=== PATIENT | male | born 1980 | race Caucasian/White ===

== ENCOUNTER 2021-12-02 16:23 | Inpatient (IN) | payer OTHER ==
[~2021-12-02] VITALS: Ht 185.4 cm; Wt 97.3 kg
[2021-12-02] MEDS ORDERED: pantoprazole 40MG/NS 100ML BAG 100 ML IV STA ×2 (16:55→17:12)
[2021-12-02] MEDS ORDERED: folic acid 1mg/0.2ml inj IV ONE (16:55)
[2021-12-02] MEDS ORDERED: thiamine 100mg/ml 2ml inj. IV ONE (16:55)
[2021-12-02] MEDS ORDERED: normal saline 1000ML IV soln IV ONE (16:55)
[2021-12-02 17:28] LABS: BASOPHILS % (AUTO) 0.5 % (0-1); EOSINOPHILS # (AUTO) 0.1 X10'3 (0-0.9); EOSINOPHILS % (AUTO) 0.6 % (0-6); HEMATOCRIT 43.7 % (42.0-52.0); HEMOGLOBIN 15.4 g/dl (14.0-17.9); LYMPHOCYTES # (AUTO) 2.2 X10'3 (1.1-4.8); LYMPHOCYTES % (AUTO) 23.7 % (21-51); MEAN CORPUSCULAR HEMOGLOBIN 32.5 PG (27.0-31.0); MEAN CORPUSCULAR HGB CONC 35.2 g/dL (33.0-36.5); MEAN CORPUSCULAR VOLUME 92.3 FL (78-98); MEAN PLATELET VOLUME 7.9 FL (7.4-10.4); MONOCYTES # (AUTO) 0.5 X10'3 (0-0.9); MONOCYTES % (AUTO) 5.2 % (2-12); NEUTROPHILS # (AUTO) 6.4 X10'3 (1.8-7.7); PLATELET COUNT 254 X10'3 (140-440); RED BLOOD COUNT 4.74 X10'6 (4.70-6.10); RED CELL DISTRIBUTION WIDTH 12.7 % (11.5-14.5); WHITE BLOOD COUNT 9.1 X10'3 (4.5-11.0)
[2021-12-02 17:46] LABS: ALANINE AMINOTRANSFERASE 56 U/L (12-78); ALBUMIN 4.2 G/DL (3.4-5.0); ALBUMIN/GLOBULIN RATIO 1.3 (1.1-1.5); ALKALINE PHOSPHATASE 75 IU/L (46-116); ANION GAP 13 (8-16); ASPARTATE AMINO TRANSFERASE 26 U/L (10-37); BLOOD UREA NITROGEN 18 MG/DL (7-18); BUN/CREATININE RATIO 19.8 (5.4-32.0); CALCIUM 8.6 MG/DL (8.5-10.1); CHLORIDE 105 MMOL/L (99-107); CREATININE 0.91 MG/DL (0.60-1.10); GLUCOSE 95 MG/DL (70-104); POTASSIUM 3.6 MMOL/L (3.5-5.1); SODIUM 139 MMOL/L (135-145); TOTAL CARBON DIOXIDE 20.8 MMOL/L (24-32); TOTAL PROTEIN 7.5 G/DL (6.4-8.2); eGFR > 90 ML/MIN
[2021-12-02 17:52] LABS: ETHANOL < 0.010 GM/DL (0.0-0.010)
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
[2021-12-02] MEDS ORDERED: LIDOcaine Viscous 15ml cup MM ONE (19:20)
[2021-12-02] MEDS ORDERED: sucralfate 1 gm tablet PO ONE (19:20)
[2021-12-02] MEDS ORDERED: mag hydrox/Alum hydrox/simeth 30ml oral suspension PO ONE (19:20)
[2021-12-02] MEDS ORDERED: folic acid 1mg tablet PO ONE (19:25)
[2021-12-02] MEDS ORDERED: thiamine 100mg tablet PO ONE (19:25)
--- NOTE | 2021-12-02 20:21 | NUR ---
report given to RN patient transferring to [facility]
--- NOTE | 2021-12-02 20:33 | NUR ---
Pt arrived in EDOF he is tearful states he is suicidal because his and children are leaving him "after 22 years." Pt provided urine sample and changed into green scrubs.
[2021-12-02 21:26] LABS: URINE AMPHETAMINE SCREEN NEGATIVE (Neg); URINE BARBITUATE SCREEN NEGATIVE (Neg); URINE BENZODIAZEPINES SCREEN NEGATIVE (Neg); URINE CANNABINOID SCREEN POSITIVE (Neg); URINE COCAINE SCREEN NEGATIVE (Neg); URINE METHADONE SCREEN NEGATIVE (Neg); URINE OPIATE SCREEN NEGATIVE (Neg); URINE PHENCYCLIDINE SCREEN NEGATIVE (Neg)
[2021-12-02] MEDS ORDERED: ATOR80TA PO (22:03)
[2021-12-02] MEDS ORDERED: DULO-31 PO (22:03)
[2021-12-02] MEDS ORDERED: MULT-1074 PO (22:03)
[2021-12-02] MEDS ORDERED: OMEG-79 PO (22:03)
[2021-12-02] MEDS ORDERED: ALBU8HFA PO (22:03)
[2021-12-02] MEDS ORDERED: MELO-102 PO (22:03)
[2021-12-02] MEDS ORDERED: CETI10TA15 PO (22:03)
[2021-12-02] MEDS ORDERED: PRAZ1CAP5 PO (22:03)
[2021-12-02] MEDS ORDERED: LIDO5CRE18 TOP (22:03)
[2021-12-02] MEDS ORDERED: FLUT16SP11 BOTHNARES (22:03)
[2021-12-02] MEDS ORDERED: albuterol 2.5 MG/3 ML nebule NEB PRN (23:55)
[2021-12-02] MEDS ORDERED: LIDOCAINE 5% OINTMENT 35GM TP PRN (23:55)
--- NOTE | 2021-12-03 01:35 | NUR ---
Pt is sleeping, appears to be resting comfortably rr even and unlabored.
--- NOTE | 2021-12-03 02:06 | NUR ---
Pt asleep on right side, even rise and fall of chest
--- NOTE | 2021-12-03 05:19 | NUR ---
Pt awaken for vitals and returns to sleep, rr even and unlabored.
--- NOTE | 2021-12-03 06:00 | NUR ---
ASSUMED CARE FROM OFF GOING NURSE YOLIS. PT. RESTING QUIETLY WITH EYES CLOSED. NO DISTRESS NOTED. WILL CONTINUE TO MONITOR FOR SAFETY.
[2021-12-03] MEDS: fluticasone nasal spray 16GM bottle NS SCH (08:00)
[2021-12-03] MEDS: MELOXICAM 15MG TABLET PO SCH (08:00)
--- NOTE | 2021-12-03 09:35 | NUR ---
PT. SITTING ON THE EDGE OF BED VOMITING. PT. STATES HE WAS SEEN BY THE [facility] PRIOR TO THIS ADMISSION FOR STOMACH ISSUES. PT. STATES THAT HIS STOMACH ISSUES WERE MADE WORST AFTER FINDING OUT HIS WAS LEAVING HIM AND TAKING THE CHILDREN. PT. PRESENTS TEARFUL AND DEPRESSED. ORDER OBTAINED FOR ZOFRAN 4MG IM FOR N/V. STAFF WILL CONTINUE TO MONITOR FOR SAFETY.
--- NOTE | 2021-12-03 09:37 | NUR ---
pt woke up and began vomiting and reports upset stomach. edmd susanna made aware and verbal order received for zofran 4mg IM x1 dose now. order placed as received
[2021-12-03] MEDS ORDERED: ondansetron/PF 4mg/2ml inj IM ONE (09:40)
--- NOTE | 2021-12-03 10:00 | NUR ---
received call from [facility] regarding possible future placement for pt. they state they will take him if he needs placement for mental health or are available for follow up appointments/resources if necessary if pt is discharged. informed Roman with [facility] regarding this information.
[2021-12-03] MEDS: duloxetine 30mg CAPSULE.DR PO SCH (10:11)
[2021-12-03] MEDS: atorvastatin 20mg tablet PO SCH (10:12)
[2021-12-03] MEDS: multivitamins, therapeutics tablet PO SCH (10:12)
--- NOTE | 2021-12-03 12:25 | NUR ---
LUNCH TRAY LEFT AT BEDSIDE. PT. LYING IN BED WITH EYES CLOSED NO DISTRESS NOTED.
--- NOTE | 2021-12-03 13:04 | NUR ---
PT. TRIED CALLING HIS WITHOUT ANY SUCCESS. PT. TEARFUL AFTER NOT BEING ABLE TO SPEAK WITH . PT. STATES NO ONE WANTS TO TALK TO ME. VISIBLE ON THE UNIT LYING IN BED. AWAITNG EVALUATION BY [facility] CLINICIAN .
[2021-12-03] MEDS ORDERED: acetaminophen 325mg tablet PO STA (13:19)
[2021-12-03] MEDS ORDERED: ondansetron 4mg rapidly disintigrating tab PO ONE (13:20)
[2021-12-03] MEDS: OMEGA-3/DHA/EPA/FISH OIL 1 EACH CAPSULE.DR PO SCH ×2 (13:38→20:45)
--- NOTE | 2021-12-03 13:46 | NUR ---
PT. VISIBLE ON THE UNIT TALKING ON THE PHONE WITH HIS . PT. VERY TEARFUL AT TIMES.
--- NOTE | 2021-12-03 13:55 | NUR ---
[facility] CLINICIAN AT BEDSIDE.
--- NOTE | 2021-12-03 14:06 | NUR ---
PT. PLACED ON 5150 BY [facility] CLINICIAN.
--- NOTE | 2021-12-03 14:27 | NUR ---
called [facility] as we are now looking for placement for pt. they state to have [facility] send a packet and they will inform us with acceptance details if pt qualifies. [facility] Roman aware of update.
--- NOTE | 2021-12-03 16:57 | NUR ---
PT. RESTING QUIETLY AFTER TALKING ON THE PHONE.
--- NOTE | 2021-12-03 20:30 | NUR ---
Pt in room reading the Bible, no distress noted at this time.
[2021-12-03] MEDS: prazosin 1mg capsule PO SCH (20:45)
[2021-12-03] MEDS: cetirizine 10mg tablet PO SCH (20:45)
[2021-12-03 22:15] VITALS: BP 122/84
--- NOTE | 2021-12-03 22:21 | NUR ---
Pt transferred upstairs to Behavior unit @2205 by staff, Vs stable and are as follows B/P 122/84 P64 R14 SP02 98%RA, Pt 5150 and belongings sent with him.
[2021-12-03] MEDS ORDERED: mag hydrox/Alum hydrox/simeth 30ml oral suspension PO PRN (22:35)
[2021-12-03] MEDS ORDERED: magnesium hydroxide 30ml (MOM) UD suspension PO PRN (22:35)
[2021-12-03] MEDS ORDERED: loperamide 2mg capsule PO PRN (22:35)
[2021-12-03] MEDS ORDERED: acetaminophen 325mg tablet PO PRN ×2 (22:35)
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
[2021-12-04 07:40] VITALS: BP 111/71
[2021-12-04] MEDS: fluticasone nasal spray 16GM bottle NS SCH (08:00)
[2021-12-04] MEDS: MELOXICAM 15MG TABLET PO SCH (08:00)
[2021-12-04] MEDS: OMEGA-3/DHA/EPA/FISH OIL 1 EACH CAPSULE.DR PO SCH ×2 (08:01→20:39)
[2021-12-04] MEDS: multivitamins, therapeutics tablet PO SCH (08:01)
[2021-12-04] MEDS: atorvastatin 20mg tablet PO SCH (08:02)
[2021-12-04] MEDS: duloxetine 30mg CAPSULE.DR PO SCH (08:02)
[2021-12-04 08:03] LABS: CHOL/HDL RATIO 5.2 (0.00-4.99); CHOLESTEROL 208 MG/DL (0-200); HDL CHOLESTEROL 40 MG/DL (35-60); LDL CHOLESTEROL 137 MG/DL (50-100); TRIGLYCERIDES 138 MG/DL (20-135)
[2021-12-04 08:07] LABS: HEMOGLOBIN A1C 5.4 % (4.5-6.2)
--- NOTE | 2021-12-04 09:24 | NUR ---
CM Presenting Issues: Pt's admitted following increasing SI and significant life stressors associated w/marriage. Interventions: Clin[phone], Elsie informed clinician that pt is 100% service connected to the [facility]; receives PCP, MH & Recovery services thru the [facility]. Clt has a standing appointment w/[facility] on 12/12 @ 11:00 AM & PMD appointment on 12/17 @ 3:30 PM. Plan: Clinician will meet w/pt and complete assessment & obtained FABIANO. Audelia Reyes LCSW Addendum: 12/04/21 at 0948 by Audelia Reyes SS Amended: Links added.
[2021-12-04] MEDS ORDERED: QUEtiapine 25mg tablet PO PRN ×2 (15:25)
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
[2021-12-04 20:00] VITALS: BP 130/99
[2021-12-04] MEDS: QUEtiapine 25mg tablet PO SCH (20:38)
[2021-12-04] MEDS: prazosin 1mg capsule PO SCH (20:39)
[2021-12-04] MEDS: cetirizine 10mg tablet PO SCH (20:39)
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
[2021-12-05 07:26] VITALS: BP 132/86
[2021-12-05] MEDS: fluticasone nasal spray 16GM bottle NS SCH (08:00)
[2021-12-05] MEDS: duloxetine 30mg CAPSULE.DR PO SCH (08:07)
[2021-12-05] MEDS: atorvastatin 20mg tablet PO SCH (08:07)
[2021-12-05] MEDS: OMEGA-3/DHA/EPA/FISH OIL 1 EACH CAPSULE.DR PO SCH ×2 (08:07→20:42)
[2021-12-05] MEDS: multivitamins, therapeutics tablet PO SCH (08:07)
--- NOTE | 2021-12-05 09:15 | NUR ---
Pt. attended two groups today. In our first group we talked about hearing voices and read an article about coping strategies. We discussed what coping strategies they had success with in the past and brainstormed developing coping skills. The second group was an Art Expression where they had to draw opposing emotions and then write a dialogue between these emotions. Pt. engaged appropriately in both groups. He was attentive and shared his thoughts freely. He was alert and oriented X 4. His thought content and thought process was WNL. In his art expression Pt. depicted calm and angry in his drawing and writing dialogue. He shared how sitting in his front yard with his dogs is his safe place. His dialogues showed his inner dialogue between these two feeling states. He was very open and shared his thought processes around these emotions. His mood was a bit sad with a restricted affect. Lorraine Encarnacion LCSW
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
[2021-12-05 20:06] VITALS: BP 123/77
[2021-12-05] MEDS: cetirizine 10mg tablet PO SCH (20:42)
[2021-12-05] MEDS: QUEtiapine 25mg tablet PO SCH (20:42)
[2021-12-05] MEDS: prazosin 1mg capsule PO SCH (20:42)
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
[2021-12-06] MEDS: fluticasone nasal spray 16GM bottle NS SCH (08:00)
[2021-12-06] MEDS: atorvastatin 20mg tablet PO SCH (08:07)
[2021-12-06] MEDS: OMEGA-3/DHA/EPA/FISH OIL 1 EACH CAPSULE.DR PO SCH (08:07)
[2021-12-06] MEDS: duloxetine 30mg CAPSULE.DR PO SCH (08:07)
[2021-12-06] MEDS: multivitamins, therapeutics tablet PO SCH (08:07)
[2021-12-06] MEDS ORDERED: QUET100T34 PO (09:13)
[2021-12-06] MEDS ORDERED: PRAZ1CAP5 PO (09:13)
[2021-12-06] MEDS ORDERED: CETI10TA15 PO (09:13)
--- NOTE | 2021-12-06 10:21 | NUR ---
DISCHARGE PLAN Tanner is discharging home today. His daughter is going to visit and can give him a ride home. [facility] and scheduled him an appointment with a counselor as well. Informed him of his upcoming appointments. REINALDO Cheney
--- NOTE | 2021-12-06 10:38 | NUR ---
Discharge Note: Paperwork and follow up reviewed with the patient who verbalizes understanding and is agreeable to discharge. Smoking cessation information provided. Escorted off the unit by staff with all of his belongings and written prescriptions at 10:30 and is picked up by his daughter. Discharged with the following instructions: Follow-Up: Patient has been scheduled/referred to the following providers for post-hospital discharge and aftercare treatment. Psychiatrist: Appointment: 12/12/21 at [address] Gee Thmoas [address] [address] Phone# [phone] Primary Care Provider: Appointment: 12/17/21 at 3:[address] Param Thomas [address] [address] Phone# [phone] Therapist: Appointment: 12/11/21 at 1:00 PM with Gregorio Thomas [address] [address] Phone# [phone] Discharge Address: [address] [place] [address] Transportation: Family Patient given community crisis services information and National suicide hotline handout. Resources for education regarding mental illness: [address] [address] For urgent mental health crisis needs please contact Mobile Crisis Outreach Team Thursday through Thursday 8:30am to 5:00pm. . Mobile Crisis Outreach Team [address] [place] [id number] Urgent Out-patient Mental Health Services 365 Days A Year: [address] [address] Hours: Mon thru Fri 12pm-9pm Weekends 11am-9pm
== END 2021-12-06 10:35 | disposition home or self-care (01) | DRG 885 ==
LOC: ER 16:24 → ED HOLD 12-03 21:15 → ADULT MH 12-03 22:33
PROVIDERS: ADMIT Psychiatry & Neurology Psychiatry; ATTEND Psychiatry & Neurology Psychiatry
DX: F33.9 Major depressive disorder, recurrent, unspecified (principal); F10.29 Alcohol dependence with unspecified alcohol-induced disorder; R45.851 Suicidal ideations; Z20.822 Contact with and (suspected) exposure to COVID-19; F43.12 Post-traumatic stress disorder, chronic; E78.5 Hyperlipidemia, unspecified; J44.9 Chronic obstructive pulmonary disease, unspecified; K29.20 Alcoholic gastritis without bleeding; F12.90 Cannabis use, unspecified, uncomplicated; Z79.899 Other long term (current) drug therapy; Z83.3 Family history of diabetes mellitus; Z87.891 Personal history of nicotine dependence
CPT/HCPCS: 36415; 71045; 80053; 80061; 80305; 80320; 83036; 84443; 85025; 86885; 86900; 86901; 87081; 87635; 93005; 99285; C9803; J2405; J7030